=== PATIENT | female | born 1955 | race Caucasian/White ===

== ENCOUNTER 2019-04-18 09:09 | Outpatient (REF) | payer BC, SELFPAY ==
[2019-04-18 13:21] LABS: ALT 30 U/L (14-59); AST 14 U/L (15-37); Albumin 4.1 g/dL (3.4-5.0); Alkaline Phosphatase 101 U/L (46-116); Anion Gap 7.5 mmol/L (3-11); BUN 18 mg/dL (7-18); Bilirubin, Total 0.9 mg/dL (0.2-1.0); CO2 29.5 mmol/L (21.0-32.0); CREATININE 1.24 mg/dL (0.55-1.02); Calcium 8.9 mg/dL (8.5-10.1); Calculated LDL 104 mg/dL; Chloride 104 mmol/L (98-107); Cholesterol 172 mg/dL (50-200); Estimated GFR 43.83 (mL/min/1.73m2); Glucose 100 mg/dL (70-100); HDL Cholesterol 36 mg/dL (40-60); Potassium 4.9 mmol/L (3.5-5.1); Sodium 141 mmol/L (136-145); Total Protein 7.1 g/dL (6.4-8.2); Triglyceride 162 mg/dL (30-150)
[2019-04-18 13:28] LABS: HCT 34.8 % (36.0-46.0); HGB 11.6 g/dL (12.0-15.5); Mean Corp. HGB Concentration 33.3 g/dL (32.0-36.0); Mean Corpuscular Hemoglobin 32.1 pg (27.0-33.0); Mean Corpuscular Volume 96.4 fL (80-95); Mean Platelet Volume 10.6 fL (8.0-11.0); Platelet Count 196 x1000/uL (130-400); RBC 3.61 m/cumm (4.00-5.20); RBC Distribution Width 12.3 % (11.7-14.6); White Blood Cell Count 6.13 k/cumm (4.4-10.8)
== END 2019-04-18 09:29 ==
LOC: NCHCO 09:09
PROVIDERS: PCP Family Medicine; Visit Provider Family Medicine
DX: I10 Essential (primary) hypertension (principal); R73.9 Hyperglycemia, unspecified; R73.09 Other abnormal glucose; E87.6 Hypokalemia; E78.00 Pure hypercholesterolemia, unspecified; R79.89 Other specified abnormal findings of blood chemistry
CPT/HCPCS: 80053; 80061; 85027

== ENCOUNTER 2019-04-25 16:12 | Outpatient (REF) | payer BC, SELFPAY ==
--- NOTE | 2019-04-25 14:30 | PAPFT_PTH ---
PATIENT: Kalyani Lira LOC: [facility] U#:[id number] AGE/SX: 63/F ROOM: RE04/25/[address]: Madisyn Rangel : 1955 BED: DIS: 04/25/2019 SPEC #: [id number] RECD: 04/26/19 12:48 STATUS: JOHN REQ #: [id number] DESI: 04/25/19 14:[address]: Madisyn Rangel DEPT: [facility] Cytology RECD BY: Hannah Zaman Tissues: 1 - CX/ENDOCX FOR PAP SMEARS Procedures: PAP THIN PREP/[facility] Screening HPV DNA PROBE Comments: [id number]
== END 2019-04-25 16:32 ==
LOC: NCHCN 16:12
PROVIDERS: PCP Family Medicine; Visit Provider Family Medicine
DX: Z00.00 Encounter for general adult medical examination without abnormal findings (principal); Z12.4 Encounter for screening for malignant neoplasm of cervix; Z11.51 Encounter for screening for human papillomavirus (HPV); Z01.419 Encounter for gynecological examination (general) (routine) without abnormal findings
CPT/HCPCS: 88142; 87624

== ENCOUNTER 2022-02-19 16:07 | Outpatient (REF) | payer MEDICARE, BC, SELFPAY ==
[2022-02-19 20:17] LABS: HCT 39.5 % (36.0-46.0); HGB 13.8 g/dL (11.2-15.7); MCH 32.5 pg (27.0-33.0); MCHC 34.9 % (32.0-36.0); MCV 93 fL (80-95); MPV 10.9 fL (8.0-11.0); Platelet Count 180 10^3/uL (130-400); RBC 4.25 10^6/uL (3.93-5.22); RDW 11.8 % (11.7-14.6); RDW-SD 40.1 fL; WBC 6.41 10^3/uL (4.4-10.8)
[2022-02-19 20:35] LABS: Hemoglobin A1C 6.4 % (<5.7)
[2022-02-19 20:41] LABS: ALT 79 U/L (14-59); AST 43 U/L (15-37); Albumin 4.1 g/dL (3.4-5.0); Alkaline Phosphatase 91 U/L (46-116); BUN 13 mg/dL (7-18); Calcium 9.1 mg/dL (8.5-10.1); Calculated LDL 92 mg/dL (<100); Chloride 103 mmol/L (98-107); Cholesterol 158 mg/dL (<200); Estimated GFR 55.64 (mL/min/1.73m2); Glucose 118 mg/dL (74-106); HDL Cholesterol 38 mg/dL (40-60); Potassium 3.7 mmol/L (3.5-5.1); Sodium 141 mmol/L (136-145); Total Protein 7.6 g/dL (6.4-8.2); Triglyceride 144 mg/dL (<150)
== END 2022-02-19 16:08 | disposition home or self-care (01) ==
LOC: NCHCN 16:07
PROVIDERS: PCP Family Medicine; Visit Provider Family Medicine
DX: R73.03 Prediabetes (principal); I10 Essential (primary) hypertension
CPT/HCPCS: 80053; 80061; 85027; 83036

== ENCOUNTER 2024-05-22 09:13 | Outpatient (REF) | payer MEDICARE, SELFPAY ==
[2024-05-22 15:39] LABS: HCT 43.5 % (36.0-46.0); HGB 14.5 g/dL (11.2-15.7); MCH 31.1 pg (27.0-33.0); MCHC 33.3 % (32.0-36.0); MCV 93 fL (80-95); MPV 11.2 fL (8.0-11.0); Platelet Count 169 10^3/uL (130-400); RBC 4.66 10^6/uL (3.93-5.22); RDW 11.7 % (11.7-14.6); RDW-SD 40.3 fL; WBC 5.62 10^3/uL (4.4-10.8)
[2024-05-22 16:23] LABS: ALT 33 U/L (14-59); AST 15 U/L (15-37); Albumin 4.1 g/dL (3.4-5.0); Alkaline Phosphatase 110 U/L (46-116); Anion Gap 8.1 mmol/L (3-11); BUN 11 mg/dL (7-18); Bilirubin, Total 1.14 mg/dL (0.2-1.0); CO2 31.9 mmol/L (21.0-32.0); CREATININE 1.1 mg/dL (0.55-1.02); Calcium 9.4 mg/dL (8.5-10.1); Calculated LDL 106 mg/dL (<100); Chloride 106 mmol/L (98-107); Cholesterol 176 mg/dL (<200); Estimated GFR 54.73 (mL/min/1.73m2); Glucose 102 mg/dL (74-106); HDL Cholesterol 51 mg/dL (40-60); Potassium 4.8 mmol/L (3.5-5.1); Sodium 146 mmol/L (136-145); Total Protein 7.2 g/dL (6.4-8.2); Triglyceride 96 mg/dL (<150); Vitamin D 25 Total 30.6 ng/mL (30-100)
[2024-05-22 17:00] LABS: Hemoglobin A1C 6.2 % (<5.7)
== END 2024-05-22 09:14 | disposition home or self-care (01) ==
LOC: NCHCN 09:13
PROVIDERS: PCP Family Medicine; Visit Provider Family Medicine
DX: I10 Essential (primary) hypertension (principal); R73.03 Prediabetes; E55.9 Vitamin D deficiency, unspecified
CPT/HCPCS: 80053; 80061; 82306; 85027; 83036

== ENCOUNTER 2025-04-26 16:27 | Outpatient (REF) | payer MEDICARE, SELFPAY ==
[2025-04-26 18:11] LABS: COMMENT (LAB VIEW ONLY) 167.47 mg/dL; Microalb ug/mg Crea 5.6 ug/mg Cr
== END 2025-04-26 16:28 | disposition home or self-care (01) ==
LOC: NCHCN 16:27
PROVIDERS: PCP Family Medicine; Visit Provider Family Medicine
DX: E11.9 Type 2 diabetes mellitus without complications (principal)
CPT/HCPCS: 82043; 82570